=== PATIENT | male | born 1995 | race Caucasian/White ===

== ENCOUNTER 2016-06-27 16:48 | Inpatient (IN) | payer BC ==
[~2016-06-27] VITALS: Ht 162.6 cm; Wt 61.8 kg
[~2016-06-27 16:48] MED LIST: LORATAB PO
[2016-06-27] MEDS ORDERED: EFF75 PO (16:58)
[2016-06-27] MEDS ORDERED: LIDOCAINE/EPINEPHRINE 1% 20 ML VIAL INFIL ONE (17:15)
[2016-06-27 17:36] LABS: BASO % 0.3 %; BASO ABS # 0.02 K/uL (0-0.2); COMPLETE YES; EOS % 1.4 %; HEMATOCRIT 44.4 % (42-52); IG% 0.1 %; LYMPH % 24.4 %; LYMPH ABS # 1.95 K/uL (1.2-3.4); MEAN CELL VOLUME 91.5 fL (80-100); MEAN CORPUSCULAR HGB CONC 34.9 g/dl (32-36); MEAN PLATELET VOLUME 10.2 fL (7.4-10.4); MONO % 7.3 %; NEUT % 66.5 %; PLATELET COUNT 250 K/uL (130-400); RED BLOOD COUNT 4.85 M/uL (4.7-6.1); WHITE BLOOD COUNT 7.99 K/uL (4.8-10.8)
[2016-06-27 17:55] LABS: ALT/SGPT 28 U/L (12-78); BLOOD UREA NITROGEN 22 mg/dl (7-18); BUN/CREATININE RATIO 22.9 (10-20); CALCIUM 9.3 mg/dl (8.5-10.1); CARBON DIOXIDE 27 mmol/L (21-32); CHLORIDE 107 mmol/L (98-107); CREATININE 0.96 mg/dl (0.60-1.40); GLUCOSE 90 mg/dl (70-99); SODIUM 142 mmol/L (136-145)
--- NOTE | 2016-06-27 18:02 | DIAGNOSTIC IMAGING REPORT ---
CHEST ONE VIEW PORTABLE CLINICAL HISTORY: psych clearance COMPARISON STUDY: 06/20/2014 FINDINGS: The cardiac and mediastinal contours are normal. There is no evidence of focal pulmonary consolidation. There is no evidence of failure. No pleural effusions are visualized.[ A cardiac loop recorder projects over the left chest. IMPRESSION: No active disease in the chest. Electronically signed by: Austin Carlisle M.D. 06/27/2016 6:00 PM Dictated Date/Time: 06/27/2016 6:00 PM
[2016-06-27 18:05] LABS: ALKALINE PHOSPHATASE 55 U/L (45-117); AST/SGOT 21 U/L (15-37)
[2016-06-27 18:16] LABS: URINE APPEARANCE CLEAR (CLEAR); URINE BILIRUBIN NEG (NEG); URINE COLOR DK YELLOW; URINE NITRITE NEG (NEG); URINE SPECIFIC GRAVITY 1.031 (1.000-1.030); UROBILINOGEN NEG (NEG)
[2016-06-27 18:17] LABS: MANUAL MICROSCOPIC REQUIRED? NO; REVIEW REQ? NO
[2016-06-27 18:36] LABS: BENZODIAZEPINE, URINE NEG (NEG); COCAINE,URINE NEG (NEG); PHENCYCLIDINE, URINE NEG (NEG)
[2016-06-27 19:11] VITALS: O2SAT 97
[2016-06-27] MEDS ORDERED: MAGNESIUM HYDROXIDE SUSP 30 ML UDC PO PRN (20:15)
[2016-06-27] MEDS ORDERED: ALUMINUM/MAGNESIUM SUSP 30 ML UDC PO PRN (20:15)
[2016-06-27] MEDS ORDERED: SODIUM CHLORIDE 0.65% NA SOLN 45 ML (OCEAN) PRN (20:15)
[2016-06-27] MEDS ORDERED: ACETAMINOPHEN 325 MG TAB PO PRN (20:15)
[2016-06-27] MEDS ORDERED: BISMUTH SUBSALICYLATE PER ML OMNICELL CHARGE PO PRN (20:15)
[2016-06-27] MEDS ORDERED: hydrOXYzine HCL 25 MG TAB PO PRN ×2 (20:15)
--- NOTE | 2016-06-27 20:55 | EMERGENCY ROOM VISIT NOTE ---
History First contact with patient: 16:52 Chief Complaint: MENTAL HEALTH EVALUATION Stated Complaint: WRIST LAC History of Present Illness The patient is a 21 year old male who presents to the Emergency Room via BLS for evaluation of a self-inflicted left wrist laceration. The patient reports that he has a history of depression. He states that last semester, he went to [employer] for approximately 2 weeks when his parents determined that he would do better at home. The patient states that he took classes at [employer] for one semester. He states he was started on Effexor and was doing much better. He came back to [employer] and states that he was doing okay until last month. The patient states that his depression has been increasing and is now the worst it has ever been. He states that after class today, he went back to his room and had "one of his episodes." He states that he became angry and emotional for no reason and was throwing things around the room. He states that he cut his left wrist with scissors. He states this was not an attempt at suicide, but did help him feel a release of his anger. The patient does report occasional thoughts of suicide and occasional thoughts of hurting others as well. He denies any specific suicidal plan. The patient denies any other injuries. Review of Systems A complete 10-point Review of Systems was discussed with the patient, with pertinent positives and negatives listed in the History of Present Illness. All remaining Review of Systems questions can be considered negative unless otherwise specified. Social History Smoking Status: Never Smoker Alcohol Use: none Drug Use: none Marital Status: single Housing Status: lives with roommate Occupation Status: [employer] student Current/Historical Medications Scheduled Venlafaxine Hcl (Effexor), 75 MG PO DAILY Allergies Coded Allergies: No Known Allergies (Unverified , 06/27/16) Physical Exam Vital Signs Date Time Temp Pulse Resp B/P Pulse Ox O2 Delivery O2 Flow Rate FiO2 06/27/16 19:11 76 16 122/75 97 Room Air 06/27/16 16:50 36.8 72 20 138/89 97 Room Air Physical Exam VITALS: Vitals are noted on the nurse's note and reviewed by myself. Vital signs stable. GENERAL: This is a 21-year-old male, in no acute distress, nondiaphoretic, well- developed well-nourished. SKIN: There is a 4 cm laceration to the left wrist. There is minimal active bleeding. No tendons or significant blood vessels are identified in the base of the wound. HEENT: Normocephalic. PERRLA. EOMI. Nares patent. Mucous membranes moist. Neck is supple without nuchal rigidity. HEART: Regular rate and rhythm without murmurs gallops or rubs. LUNGS: Clear to auscultation bilaterally without wheezes, rales or rhonchi. No retractions or accessory muscle use. ABDOMEN: Positive bowel sounds x 4. Soft, nontender. MUSCULOSKELETAL: Full range of motion of the left wrist and all fingers. Family Day Care Provider strength 5/5. NEURO: Patient was alert and oriented to person place and time. Normal sensation to light and sharp touch. Medical Decision & Procedures Laboratory Results 06/27/16 17:26 Red Blood Count 4.85, Mean Corpuscular Volume 91.5, Mean Corpuscular Hemoglobin 32.0, Mean Corpuscular Hemoglobin Concent 34.9, Mean Platelet Volume 10.2, Neutrophils (%) (Auto) 66.5, Lymphocytes (%) (Auto) 24.4, Monocytes (%) (Auto) 7.3, Eosinophils (%) (Auto) 1.4, Basophils (%) (Auto) 0.3, Neutrophils # (Auto) 5.32, Lymphocytes # (Auto) 1.95, Monocytes # (Auto) 0.58, Eosinophils # (Auto) 0.11, Basophils # (Auto) 0.02 06/27/16 17:26 Test 06/27/16 17:26 06/27/16 18:05 06/27/16 18:29 White Blood Count 7.99 K/uL (4.8-10.8) Red Blood Count 4.85 M/uL (4.7-6.1) Hemoglobin 15.5 g/dL (14.0-18.0) Hematocrit 44.4 % (42-52) Mean Corpuscular Volume 91.5 fL (80-100) Mean Corpuscular Hemoglobin 32.0 pg (25-34) Mean Corpuscular Hemoglobin Concent 34.9 g/dl (32-36) Platelet Count 250 K/uL (130-400) Mean Platelet Volume 10.2 fL (7.4-10.4) Neutrophils (%) (Auto) 66.5 % Lymphocytes (%) (Auto) 24.4 % Monocytes (%) (Auto) 7.3 % Eosinophils (%) (Auto) 1.4 % Basophils (%) (Auto) 0.3 % Neutrophils # (Auto) 5.32 K/uL (1.4-6.5) Lymphocytes # (Auto) 1.95 K/uL (1.2-3.4) Monocytes # (Auto) 0.58 K/uL (0.11-0.59) Eosinophils # (Auto) 0.11 K/uL (0-0.5) Basophils # (Auto) 0.02 K/uL (0-0.2) RDW Standard Deviation 42.4 fL (36.4-46.3) RDW Coefficient of Variation 12.6 % (11.5-14.5) Immature Granulocyte % (Auto) 0.1 % Immature Granulocyte # (Auto) 0.01 K/uL (0.00-0.02) Anion Gap 8.0 mmol/L (3-11) Estimated GFR () 130.4 Estimated GFR (Non- 112.5 BUN/Creatinine Ratio 22.9 (10-20) Calcium Level 9.3 mg/dl (8.5-10.1) Total Bilirubin 0.9 mg/dl (0.2-1) Direct Bilirubin 0.2 mg/dl (0-0.2) Aspartate Amino Transf (AST/SGOT) 21 U/L (15-37) Alanine Aminotransferase (ALT/SGPT) 28 U/L (12-78) Alkaline Phosphatase 55 U/L (45-117) Total Protein 7.6 gm/dl (6.4-8.2) Albumin 4.2 gm/dl (3.4-5.0) Thyroid Stimulating Hormone (TSH) 1.110 uIu/ml (0.300-4.500) Urine Color DK YELLOW Urine Appearance CLEAR (CLEAR) Urine pH 6.0 (4.5-7.5) Urine Specific Edmond 1.031 (1.000-1.030) Urine Protein NEG (NEG) Urine Glucose (UA) NEG (NEG) Urine Ketones NEG (NEG) Urine Occult Blood NEG (NEG) Urine Nitrite NEG (NEG) Urine Bilirubin NEG (NEG) Urine Urobilinogen NEG (NEG) Urine Leukocyte Esterase NEG (NEG) Urine Opiates Screen NEG (NEG) Urine Methadone, Qualitative NEG (NEG) Urine Barbiturates NEG (NEG) Urine Phencyclidine (PCP) Level NEG (NEG) Ur Amphetamine/Methamphetamine NEG (NEG) MDMA (Ecstasy) Screen NEG (NEG) Urine Benzodiazepines Screen NEG (NEG) Urine Cocaine Metabolite NEG (NEG) Urine Marijuana (THC) NEG (NEG) Ethyl Alcohol mg/dL < 3.0 mg/dl (0-3) Procedure Verbal consent was obtained to perform the procedure. Using sterile technique the wound was cleaned with Betadine. The area was sterilely draped. 4 ml of 1 % buffered lidocaine with epinephrine was used to anesthetize the left wrist laceration. Once the patient was anesthetized, the wound was copiously irrigated under pressure with sterile saline. The wound was explored as described in the physical exam section. Deep structures were repaired using 3 simple interrupted 5-0 Vicryl sutures. The laceration was repaired using 7 simple interrupted 5-0 nylon sutures with the wound edges being well approximated. The patient tolerated the procedure well. Hemostasis was achieved. The area was cleaned with sterile saline and dressed with bacitracin ointment and bandage. Medical Decision Differential diagnosis includes depression, anxiety, suicidal ideations, among others. The patient was evaluated as above. Laceration repair was performed as noted in the procedure section. The patient presents with worsening of his depression and suicidal gesture. Although the patient does state that he was not attempting to kill himself today and initially denied suicidal ideations, he does admit to the mental health building repair maintenance supervisor that he has frequent suicidal thoughts. The patient was evaluated by the [address] [place] [id number] liaison, who recommended admission to the mental health unit for further treatment. Impression Primary Impression: Depression Departure Information Dispostion Mental Health Acute Care Condition GOOD Referrals [facility] (PCP) Forms HOME CARE DOCUMENTATION FORM, IMPORTANT VISIT INFORMATION Patient Instructions [facility] Problem Qualifiers Primary Impression: Depression Depression Type: major depressive disorder Major depression recurrence: recurrent Active/Remission status: remission status unspecified Qualified Codes: F33.9 - Major depressive disorder, recurrent, unspecified
[2016-06-27 21:24] VITALS: BP 119/77; PULSE 62; TEMP 36.5; Ht 162.6 cm; Wt 61.8 kg
[2016-06-28 06:46] VITALS: BP_SYST 102; BP_SYST 106; BP_DIAS 66; BP_DIAS 72; PULSE 53; PULSE 74; TEMP 36.7
[2016-06-28] MEDS ORDERED: VENLAFAXINE HCL 50 MG TAB PO SCH (09:00)
[2016-06-28] MEDS ORDERED: DIVALPROEX SODIUM 250 MG DELAY REL TAB PO ONE (10:00)
--- NOTE | 2016-06-28 10:28 | Psych Management Progress Note ---
Psychiatry Miscellaneous Date of Service: Jun 28, 2016. I personally participated in the case review and medical recommendations outlined in the psychiatric H&P documented by CHENTE Trejo. Patient seen, MS assessed. Rates mood as tired. Encouraged participation in therapeutic activities. He verbalized understanding of plans to start Depakote and states that all questions are answered to his satisfaction at this time.
[2016-06-28] MEDS ORDERED: LORAZEPAM 0.5 MG TAB PO PRN (11:30)
--- NOTE | 2016-06-28 11:53 | HISTORY & PHYSICAL EXAMINATION ---
DATE OF ADMISSION: 06/27/2016 IDENTIFYING DATA: Alvaro Watson is a 21-year-old [employer] student from the [facility], who was admitted to our unit voluntarily with severe depression, anger outbursts, and suicidal ideation. Information is gathered from the patient and considered to be reliable. CHIEF COMPLAINT: "I have been battling depression for a very long time. HISTORY OF PRESENT ILLNESS: Alvaro Watson is a 21-year-old gentleman from the [facility] who is currently a [employer] student. He is in psychiatric treatment with a Saundra Sanchez nurse practitioner in [place] and a therapist in [place] as well, whose first name is Olivia. He reports being treated for depression with anxiety. He describes that he has had "intense mood swings for a long time and these have been increasingly violent over the last year. He describes that yesterday he his "most intense one ever" after he had been at class and returned to his apartment. He said he got to his apartment and felt "really angry" and started throwing things, screaming and hitting the wall. He ended up picking up a pair of scissors and cutting his left wrist, but denies that this was with suicidal intention. He feels like he was not in control of himself and really did not understand what he was doing. After he cut himself however, he realized that it helped to calm him down but then looked at the wound and became concerned and summoned 911 to bring him to the hospital. He says he was thinking about what he was doing. He reports that he has been experiencing depression since he was in middle school and high school. He did have anger outbursts then but they were not as violent as these. He admits to having suicidal thinking when he was in middle school and high school, but did not tell anyone. 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 He did well his first semester but the latter part of the second semester he started going downhill and this is when he told his parents that he was experiencing depression and having suicidal thoughts. He did not, however enter into treatment until he was 19. He began seeing a psychiatrist and a therapist who diagnosed him with depression. He was on Lexapro for about a year and felt that it was not effective, although admits that he was not always consistent in taking it. He was started on Effexor 37.5 mg in January and initially felt that it was helping him to feel better. Last semester, he withdrew from school after 2 weeks due to his depression and suicidal thinking. He returned for this springester and felt that he did well in March and even in April felt that he was getting back to his old self, but since then mood has been in deterioration and anger outbursts more frequent. He cites several stressors in his life including the fact that he feels lonely, not accepted, not having a girlfriend or close friends. He wonders if he is not attractive enough, is socially awkward or there are other reasons people do not want to socialize with him. He says that he has felt this way since he was in middle school. He talks with some anger and distain about people who see him in social situations and choose not to socialize with him feeling that they are intentionally hurting him by avoiding him. Today, he says that he remains depressed. He reports sleep that is "really bad", only getting 1-4 hours of sleep per night in large part based on the fact that he is very busy with his classes and has little time to sleep. When he has the opportunity he will sleep for extended periods. He feels very tired in the day, will occasionally nap "way too long." He is currently taking 16.5 credits and has many early a.m. classes which are a struggle for him, but he is doing well academically. His appetite has been okay in general, although less in the last week. He reports anxiety socially, feeling awkward at socials and worried that he is not accepted. He also experiences anxiety prior to exams. He denies that he has ever had panic attacks. He denies auditory or visual hallucinations or paranoia, but feels as if his anger outbursts at times are unreal. The self-injurious act yesterday was the first time that he has ever done that. He also endorses at least 1 episode in which he felt "on top of the world", "the happiest ever" and felt that things were going his way. He cannot remember the timing of this. He continues to report suicidal ideation but no active plan or intent today. CURRENT MEDICATIONS: Effexor XR 75 mg daily. PAST PSYCH HISTORY: He sees as a nurse practitioner, whose name is Saundra Nelson nurse practitioner in the [place] area. His therapist's name is Olivia. He has never been hospitalized for mental health reasons. He has never made a suicide attempt. He denies violence toward other people. PRIOR MEDICATION TRIALS: 1. Lexapro - on for more than a year, did not take consistently, felt it did not work. 2. Ativan -- used with Lexapro and so felt it did not work. ACCESS TO GUNS: Denies. ALLERGIES: NKDA. PAST MEDICAL HISTORY: 1. History of a syncopal episode while on allergy medicines and had a loop monitor implanted. 2. Denies for personal history of obesity, diabetes, dyslipidemia, hypertension, or cardiovascular disease. 3. Denies history for head injury or seizure. 4. Tobacco use -- nonsmoker. 5. Caffeine use -- drinks a lot of coffee during the day in order to maintain wakefulness. FAMILY HISTORY: Denies for psychiatric issues, substance use or suicide. He denies any major medical concerns in his family including obesity, diabetes, dyslipidemia, hypertension, or cardiovascular disease. SUBSTANCE ABUSE HISTORY: The patient describes that he drinks alcohol only "very infrequently". His last drink was consumed the first week of this semester back in March. He denies ever having had any consequences as a result of alcohol. He denies the use of street drugs of any kind ever. PERSONAL HISTORY: The patient grew up in [place]. He was raised by his mother and father. His mother is a systems software manager and his father is a historiography professor. 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 He does not work outside of school. He is not currently in a relationship. He has never been and has no children. He does not consider himself to be spiritual. There are no legal concerns. Psychological trauma history is denied. MENTAL STATUS EXAMINATION: A 21-year-old gentleman of descent, who is awakened from sleep for the interview. He is casually dressed and mildly disheveled. He is cooperative with the interview. Gait and station are within normal limits. Eye contact is good. Motor behavior is unremarkable. Speech is of normal rate, volume, and tone. Affect is flat. Mood is depressed. Thought process is organized and goal directed. He denies thought disorder in the form of hallucinations or delusions. He endorses suicidal thinking but denies active plan or intent. He denies homicidal ideation. Today, he is fully oriented. Memory functions are intact. Fund of knowledge is intact. Intelligence is estimated to be average. Insight and judgment are impaired. VITAL SIGNS: Temp 36.7, pulse 53 supine, 74 sitting, respirations 16, blood pressure 102/66 supine, 106/72 sitting. LABORATORIES: 1. CBC with diff -- within normal limits. 2. Chem profile -- within normal limits. 3. TSH -- within normal limits at 1.110. 4. Toxicology -- negative. 5. Urinalysis -- within normal limits. IMAGING: Chest x-ray -- negative. REVIEW OF SYSTEMS: Positive for left wrist laceration having received 7 sutures, and reporting pain 4/10 this morning. A minimum of 10 systems has been reviewed and otherwise found to be negative. PHYSICAL EXAMINATION: Exam performed by Katrin Hernandez in the Emergency Room last night has been reviewed and accepted as medical clearance. PATIENT'S STRENGTHS AND NEEDS: 1. Strengths -- intelligence, willingness to engage in treatment. 2. Needs -- to be in local outpatient treatment. RISK ASSESSMENT: 1. Risk factors -- male, single, chronic mental illness, anxiety. 2. Protective factors -- no access to guns, no comorbid medical conditions impairing recovery, good support from parents, willingness to engage in local treatment. IMPRESSION: A 21-year-old [employer] student admitted after an anger outburst in which he cut his wrist in a self-injurious event. He gives a lot of evidence to support a bipolar diagnosis including at least 1 episode in which she felt "on top of the world", with elevated mood and multiple episodes of irritability, worsening on Effexor. At this point, we will treat this as if it is a bipolar disorder, discontinue Effexor and start Depakote 250 mg b.i.d. titrating as tolerated. I have reviewed risks, benefits, and alternatives including the need for ongoing lab monitoring and the patient wishes to proceed. Will start with [address] b[address] His parents are aware that he is here and he will want them to be involved in his treatment. He is not sure how he wants to proceed with school, although he is doing well academically. If he remains locally he will need local providers. There is no substance abuse component to his picture and so I will order Ativan 0.5 mg q. 4 hours p.r.n. in the event he feels his anger rising. The patient's left wrist laceration is currently covered after having received 7 sutures. He will need to have sutures evaluated/removed in 7-10 days. I am also recommending he cut back on caffeine due to the agitation and anxiety. At this time, the patient requires inpatient mental health treatment due to the severity of his condition and the risk for self-harm if discharged. DIAGNOSES: 1. Bipolar disorder, not otherwise specified, depressed, severe, without psychotic features. Differential includes major depressive disorder, depressed, severe, intermittent explosive disorder. 2. Caffeine abuse. PLAN: Has been reviewed with Dr. Sri Millan. 1. Bipolar disorder. -- Start Depakote DR 250 mg b.i.d. titrating as tolerated. -- Q. 15 minute checks for safety. -- Encourage patient to participate in group and individual counseling. -- Assist the patient to explore new coping strategies for times of anger and depression. -- Family meeting with parents. -- Coordinate with the Office of Student Affairs as needed. -- The patient will need local providers. 2. Caffeine abuse. -- Recommend patient drastically cut down on his caffeine use in view of anger and anxiety. INITIAL HOSPITAL CARE: [id number]. MTDD
[2016-06-28] MEDS: DIVALPROEX SODIUM 250 MG DELAY REL TAB PO SCH (21:21)
[2016-06-29 06:45] VITALS: BP_SYST 125; BP_SYST 126; BP_DIAS 75; BP_DIAS 79; PULSE 54; PULSE 64; TEMP 36.6
[2016-06-29] MEDS: DIVALPROEX SODIUM 250 MG DELAY REL TAB PO SCH ×2 (08:37→21:25)
--- NOTE | 2016-06-29 09:21 | Psychiatric Progress Notes ---
Progress Note Date of Service Jun 29, 2016. Interval History 21 yo [employer] student admitted voluntarily on 06/28/16 with mood swings, anger, and self inflicted laceration to wrist. Chief Complaint "I had another emotional breakdown.". Subjective Patient was seen & assessed interval progress reviewed with Treatment Team. The patient says that he continues to struggle with his mood and not wanting to be here. At bedtime last night, he had trouble falling asleep and began to think about all of the things that brought him to this point and then "had another emotional breakdown". He woke his roommate to talk about it and it eventually passed. He can't believe that he was feeling relatively normal on Thursday and by Thursday, was here. He is not sure how he wants to proceed with school, feeling that he should complete the semester, but at the same time does not feel he could resume classes with the way he is feeling. He denies acute SI but says that that he has thoughts that he doesn't want to live. He notes that he felt better when his parents were visiting last night, and worse when they left. "I have no peace of mind", "Why can't I be a normal 21 year old?". He admits that he has been somewhat isolative, not interacting with peers, but when he has, he says that he feels better talking. He admits to being hard on himself, and admits that he did not work as hard as he could on his problems last semester when he took off from school. Review of Systems Constitutional: + problem reported (Difficulty falling asleep) ENT: No dental problems, No hearing loss, No nasal symptoms, No problem reported, No sore throat, No tinnitus, No trouble swallowing, No unusual epistaxis Respiratory: No cough, No dyspnea at rest, No dyspnea on exertion, No hemoptysis, No problem reported, No shortness of breath, No sputum, No wheezing Cardiovascular: No PND, No chest pain, No claudication, No edema, No orthopnea , No palpitations, No problem reported Abdomen: No GI bleeding, No constipation, No diarrhea, No nausea, No pain, No problem reported, No vomiting Musculoskeletal: No calf pain, No joint pain, No muscle pain, No problem reported, No swelling Neurologic: No balance problems, No memory loss, No numbness/tingling, No paralysis, No problem reported, No vertigo, No weakness Psychiatric: + anxiety, + depression symptoms, + insomnia Integumentary: No bleeding, No color change, No itch, No new/changing skin lesions, No problem reported, No rash Sleep Information Total Hours of Sleep: 7.25 Meal Information Percent of Breakfast Consumed: 0 Percent of Lunch Consumed: 100 Percent of Dinner Consumed: 100 Mental Status Exam During interview pt is: alert and oriented, cooperative Appearance: appropriately dressed, appropriately groomed Eye contact is: good Motor behavior is: steady gait & station, no abnormal motor movements Speech: normal in rate, rhythm & volume Affect: depressed, flat Mood is: depressed Thought process: goal directed Thought content: reality based without delusions Suicidal thought are: present (passive), Plan: denied Homicidal thoughts are: denied Hallucinations: denies auditory, denies visual Cognition: memory grossly intact, attention grossly intact Intelligence estimated to be: average Insight: poor Judgement: poor Impression Trying to adjust to the unit, but resists, wanting to go home. He is a very intelligent man and is working to understand his problems but will need encouragement to try to make some changes. Long discussion about using the milieu to practice different social strategies to interact with peers, and to put his insight to use by talking with people so that he feels better. Depakote goes to 500 mg. BID today, family meeting scheduled for tomorrow. Continued Inpatient Care Requires inpatient care due to the severity of his condition and the risk for self harm if discharged. Plan (1) Bipolar affective, depress, unspec 4/2 - Increase Depakote to 500 mg. BID - Family meeting with parents tomorrow. I spoke with both parents by phone yesterday to update. - Q 15 min checks for safety - Encourage participation in group and individual counseling - Encourage patient not to isolate and to initiate interaction with peers - Has not decided how to proceed with school. Contact Office of Student Affairs as needed - If staying locally will need providers - Continue ativan prn for anxiety/anger. 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 Discharge / Aftercare Planning Primary Care Physician: Name: Dr. Nagel Therapist: Name: Afua Sanchez Date of Appointment: Jul 12, 2016 Dietary Assistant: Name: Olivia Green Visit Code E&M Code: 77249 Therapy Code: 57512 Inventory Assets Strengths: Intelligence, support from family Risk Factors Assessment Male: Yes : No /single/: Yes Higher / Fall in social status: No Access to guns: No Health problems: No Mental Health Diagnoses: Yes Substance use disorders: No Previous attempt: No Previous psychiatric stay: No Hopelessness: Yes Smoker: No Protective Factors Assessment Scientology beliefs: No : No Responsible for young children: No Employed: No Stable relationships: Yes Supportive family: Yes Data Vital Signs Last 24 Hrs: Date Time Temp Pulse Resp B/P Pulse Ox O2 Delivery O2 Flow Rate FiO2 06/29/16 06:45 36.6 54 18 126/79 64 125/75 Meds Administered Last 24 Hrs: Meds Administered (Past 24Hrs) Medications (Trade) Dose Ordered Sig/Alba Route Start Time Stop Time Status Last Admin Dose Admin Divalproex Sodium (Depakote Delay Rel Tab) 250 mg Taper BID PO 06/28/16 22:00 07/29/16 21:59 06/29/16 08:37 250 MG Divalproex Sodium (Depakote Delay Rel Tab) 250 mg NOW ONCE PO 06/28/16 10:00 06/28/16 10:01 DC 06/28/16 10:33 250 MG Lab Results Last 24 Hrs: 06/27/16 17:26 Red Blood Count 4.85, Mean Corpuscular Volume 91.5, Mean Corpuscular Hemoglobin 32.0, Mean Corpuscular Hemoglobin Concent 34.9, Mean Platelet Volume 10.2, Neutrophils (%) (Auto) 66.5, Lymphocytes (%) (Auto) 24.4, Monocytes (%) (Auto) 7.3, Eosinophils (%) (Auto) 1.4, Basophils (%) (Auto) 0.3, Neutrophils # (Auto) 5.32, Lymphocytes # (Auto) 1.95, Monocytes # (Auto) 0.58, Eosinophils # (Auto) 0.11, Basophils # (Auto) 0.02 06/27/16 17:26 Test 06/27/16 17:26 06/27/16 18:05 06/27/16 18:29 White Blood Count 7.99 K/uL (4.8-10.8) Red Blood Count 4.85 M/uL (4.7-6.1) Hemoglobin 15.5 g/dL (14.0-18.0) Hematocrit 44.4 % (42-52) Mean Corpuscular Volume 91.5 fL (80-100) Mean Corpuscular Hemoglobin 32.0 pg (25-34) Mean Corpuscular Hemoglobin Concent 34.9 g/dl (32-36) Platelet Count 250 K/uL (130-400) Mean Platelet Volume 10.2 fL (7.4-10.4) Neutrophils (%) (Auto) 66.5 % Lymphocytes (%) (Auto) 24.4 % Monocytes (%) (Auto) 7.3 % Eosinophils (%) (Auto) 1.4 % Basophils (%) (Auto) 0.3 % Neutrophils # (Auto) 5.32 K/uL (1.4-6.5) Lymphocytes # (Auto) 1.95 K/uL (1.2-3.4) Monocytes # (Auto) 0.58 K/uL (0.11-0.59) Eosinophils # (Auto) 0.11 K/uL (0-0.5) Basophils # (Auto) 0.02 K/uL (0-0.2) RDW Standard Deviation 42.4 fL (36.4-46.3) RDW Coefficient of Variation 12.6 % (11.5-14.5) Immature Granulocyte % (Auto) 0.1 % Immature Granulocyte # (Auto) 0.01 K/uL (0.00-0.02) Anion Gap 8.0 mmol/L (3-11) Estimated GFR () 130.4 Estimated GFR (Non- 112.5 BUN/Creatinine Ratio 22.9 (10-20) Calcium Level 9.3 mg/dl (8.5-10.1) Total Bilirubin 0.9 mg/dl (0.2-1) Direct Bilirubin 0.2 mg/dl (0-0.2) Aspartate Amino Transf (AST/SGOT) 21 U/L (15-37) Alanine Aminotransferase (ALT/SGPT) 28 U/L (12-78) Alkaline Phosphatase 55 U/L (45-117) Total Protein 7.6 gm/dl (6.4-8.2) Albumin 4.2 gm/dl (3.4-5.0) Thyroid Stimulating Hormone (TSH) 1.110 uIu/ml (0.300-4.500) Urine Color DK YELLOW Urine Appearance CLEAR (CLEAR) Urine pH 6.0 (4.5-7.5) Urine Specific [place] 1.031 (1.000-1.030) Urine Protein NEG (NEG) Urine Glucose (UA) NEG (NEG) Urine Ketones NEG (NEG) Urine Occult Blood NEG (NEG) Urine Nitrite NEG (NEG) Urine Bilirubin NEG (NEG) Urine Urobilinogen NEG (NEG) Urine Leukocyte Esterase NEG (NEG) Urine Opiates Screen NEG (NEG) Urine Methadone, Qualitative NEG (NEG) Urine Barbiturates NEG (NEG) Urine Phencyclidine (PCP) Level NEG (NEG) Ur Amphetamine/Methamphetamine NEG (NEG) MDMA (Ecstasy) Screen NEG (NEG) Urine Benzodiazepines Screen NEG (NEG) Urine Cocaine Metabolite NEG (NEG) Urine Marijuana (THC) NEG (NEG) Ethyl Alcohol mg/dL < 3.0 mg/dl (0-3)
[2016-06-30 06:56] VITALS: BP_SYST 102; BP_SYST 103; BP_DIAS 63; BP_DIAS 64; PULSE 55; PULSE 92; TEMP 36.5
[2016-06-30] MEDS: DIVALPROEX SODIUM 250 MG DELAY REL TAB PO SCH (08:47)
--- NOTE | 2016-06-30 10:58 | Psychiatric Progress Notes ---
Progress Note Date of Service Jun 30, 2016. Interval History 21 yo [employer] student admitted voluntarily on 06/28/16 with mood swings, anger, and self inflicted laceration to wrist. Chief Complaint "I'm not having as many emotional breakdowns". Subjective Patient was seen & assessed interval progress reviewed with Treatment Team. Staff report he is going to groups and participating, is engaging with peers, and had a good visit with his parents. He says his mood is stabilizing, as he has had "less emotional breakdowns, less anger, intense emotions" since admission. He did have "an emotional breakdown" yesterday morning, where he was angry, tearful, and "just wanted to get out of here." He complains that he is bored here and hopes to not stay long. He wants to work on better ways to cope, feeling he cannot handle "when things go wrong in my life, get super angry, need to better control my mood swings." He does think medication is helping, as mood swings have been less here. He maintains that his self inflicted wrist laceration was "out of intense anger, didn't even know what I was doing, and next thing I know my wrist was bleeding." He has noticed that just talking about his thoughts and emotions allows him to calm down and feel more in control. He also talks about being honest about how he's feeling and getting "a different perspective on myself," wanting to work on his self confidence. He denies side effects to the Depakote and is willing to increase the dose. Says he has decided to stay in school and complete the semester. Got hydroxyzine for sleep last night and felt a little groggy this am. He is very anxious for discharge, saying his treatment goal is to "get out of here as soon as possible. " Sleep Information Total Hours of Sleep: 8.00 Meal Information Percent of Breakfast Consumed: 100 Percent of Lunch Consumed: 100 Percent of Dinner Consumed: 100 Mental Status Exam During interview pt is: alert and oriented, cooperative Appearance: appropriately dressed, appropriately groomed Eye contact is: good Motor behavior is: steady gait & station, no abnormal motor movements Speech: normal in rate, rhythm & volume Affect: depressed, blunted Mood is: other ("getting better") Thought process: goal directed Thought content: reality based without delusions Suicidal thought are: denied Homicidal thoughts are: denied Hallucinations: denies auditory, denies visual Cognition: memory grossly intact, attention grossly intact Intelligence estimated to be: average Insight: impaired Judgement: impaired Impression Trying to adjust to the unit, but resists and complains of boredom, wanting to go home. Continued encouragement to engage fully in treatment and use the milieu to practice different social strategies to interact with peers, and to put his insight to use by talking with people so that he feels better. Will continue to titrate Depakote, and family meeting is scheduled for today. Continued Inpatient Care Requires inpatient care due to the severity of his condition and the risk for self harm if discharged. Plan (1) Bipolar affective, depress, unspec 4/2 - Increase Depakote to 500 mg. BID - Family meeting with parents tomorrow. I spoke with both parents by phone yesterday to update. - Q 15 min checks for safety - Encourage participation in group and individual counseling - Encourage patient not to isolate and to initiate interaction with peers - Has not decided how to proceed with school. Contact Office of Student Affairs as needed - If staying locally will need providers - Continue ativan prn for anxiety/anger. 4/3 - Increase Depakote to 500mg qam and 1000mg qhs. Trough level due on 07/05. - Family meeting with parents today. 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 (2) Caffeine abuse /2 - Recommend he reduce as he was drinking large quantities of coffee. (3) Self-inflicted laceration of wrist 4/3 - laceration clean, dry and intact, no signs infection. Does not want antibiotic ointment. Will need to f/u after discharge for suture removal. Discharge / Aftercare Planning Primary Care Physician: Name: Dr. Nagel Therapist: Name: Afua Sanchez Date of Appointment: Jul 12, 2016 Dispatcher Radio: Name: Olivia Green Visit Code E&M Code: 86426 Inventory Assets Strengths: Intelligence, support from family Risk Factors Assessment Male: Yes : No /single/: Yes Higher / Fall in social status: No Access to guns: No Health problems: No Mental Health Diagnoses: Yes Substance use disorders: No Previous attempt: No Previous psychiatric stay: No Hopelessness: Yes Smoker: No Protective Factors Assessment Scientologist beliefs: No : No Responsible for young children: No Employed: No Stable relationships: Yes Supportive family: Yes Data Vital Signs Last 24 Hrs: Date Time Temp Pulse Resp B/P Pulse Ox O2 Delivery O2 Flow Rate FiO2 06/30/16 06:56 36.5 55 16 103/63 92 102/64 Meds Administered Last 24 Hrs: Meds Administered (Past 24Hrs) Medications (Trade) Dose Ordered Sig/Alba Route Start Time Stop Time Status Last Admin Dose Admin Divalproex Sodium (Depakote Delay Rel Tab) 500 mg Taper BID PO 06/28/16 22:00 07/29/16 21:59 06/30/16 08:47 500 MG
[2016-06-30] MEDS ORDERED: DIVALPROEX SODIUM 500 MG DELAY RELEASE TAB PO SCH (22:00)
[2016-07-01 06:38] VITALS: BP_SYST 113; BP_SYST 126; BP_DIAS 73; BP_DIAS 85; PULSE 56; PULSE 71; TEMP 36.4
[2016-07-01] MEDS ORDERED: DIVALPROEX SODIUM 500 MG DELAY RELEASE TAB PO SCH (09:00)
[2016-07-01] MEDS ORDERED: DPKEC500 PO (09:14)
--- NOTE | 2016-07-01 09:23 | Discharge Instructions ---
Discharge Information Report Includes Report will include the: Discharge Instructions & Summary Admission Admission Date / Time: Jun 27, 2016 at 20:19 Reason for Admission: Major Depression Recurrent Discharge Discharge Diagnosis / Problem: Bipolar disorder, depressed Condition at Discharge: Fair Discharge Goals Goal(s): Decrease discomfort, Improve disease control, Prevent Disease Progression Activity Recommendations Activity Limitations: resume your previous activity . Instructions / Follow-Up Instructions / Follow-Up . SPECIAL CARE INSTRUCTIONS: 1. Follow through with your scheduled aftercare appointments. If unable to keep an appointment, please call to reschedule. 2. Take your medication only as prescribed. Medication should not be changed or stopped without the approval of your doctor. In the event of worsening symptoms or concerns about side effects, contact your doctor immediately. 3. Utilize new healthy coping skills, anger management skills, and stress management skills learned during your hospitalization. Journal feelings and process them with a support person. Identify stressors or situations that may result in relapse, deterioration or inappropriate behaviors and develop a plan to deal with those issues. 4. If your coping skills are ineffective and you are in crisis, contact your outpatient providers for direction. If unable to reach your providers, please call the CAN HELP LINE AT or go to the closest Emergency Room. 5. Avoid alcohol and un-prescribed drugs. 6. You have been provided with the Mental Health Advance Directives Pamphlet for your review. AFTERCARE APPOINTMENTS: * Please call your insurance company prior to your scheduled appointment to confirm your aftercare providers are covered. Take your insurance information to your appointments. . Discharge / Aftercare Planning Primary Care Physician: Name: Dr. Nagel Psychiatrist: Name: Dr Xavier Date of Appointment: Jul 18, 2016 Time of Appointment: 8:00 Appointment Notes: this is an hour apt since it's an intake Therapist: Name Of Therapist: Afua Sanchez Date of Appointment: Jul 12, 2016 Bending Roll Operator: Name: Olivia Green . Follow-Up Care Plan for Follow-Up Care: The patient will have prompt psychiatric follow up Current Hospital Diet Patient's current hospital diet: Regular Diet Discharge Diet Recommended Diet: Regular Diet Procedures Procedures Performed: No Pending Studies Pending Studies at Discharge: No Medical Emergencies . Who to Call and When: Medical Emergencies: For questions or emergencies related to your hospital stay, please contact the Inpatient Behavioral Health Unit at [phone]. A fur mixer operator is on-call 20/10 for the Behavioral Health Unit for emergencies At any time you feel your situation is an emergency, you may also call 911 immediately. . Non-Emergent Contact Non-Emergency issues call your: Psychiatrist, Therapist Advance Directives Do You Have an Existing Mental: No Existing Living Will: No Existing Power of Circular Gang Saw Operator: No Advance Directives Info Given: To Pt/S.O. Advance Directives Reason: Declines as Mental Health Visit. Discharge Summary Admission HPI Per the Admitting provider: Please see admission H&P Hospital Course (1) Bipolar affective, depress, unspec 06/29 - Increase Depakote to 500 mg. BID - Family meeting with parents tomorrow. I spoke with both parents by phone yesterday to update. - Q 15 min checks for safety - Encourage participation in group and individual counseling - Encourage patient not to isolate and to initiate interaction with peers - Has not decided how to proceed with school. Contact Office of Student Affairs as needed - If staying locally will need providers - Continue ativan prn for anxiety/anger. 06/30 - Increase Depakote to 500mg qam and 1000mg qhs. Trough level due on 07/05. - Family meeting with parents today. 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 (2) Caffeine abuse 06/29 - Recommend he reduce as he was drinking large quantities of coffee. (3) Self-inflicted laceration of wrist 06/30 - laceration clean, dry and intact, no signs infection. Does not want antibiotic ointment. Will need to f/u after discharge for suture removal. Risk Factors Assessment Male: Yes : No /single/: Yes Higher / Fall in social status: No Access to guns: No Health problems: No Mental Health Diagnoses: Yes Substance use disorders: No Previous attempt: No Previous psychiatric stay: No Hopelessness: Yes Smoker: No Protective Factors Assessment Alevism beliefs: No : No Responsible for young children: No Employed: No Stable relationships: Yes Supportive family: Yes Day of Discharge Assessment COURSE OF HOSPITALIZATION: The patient was admitted to our unit after having had an angry outbursts in the context of stress at school. He's been having increasing angry outbursts despite having been on venlafaxine. He gave a good history to support a possible underlying bipolar disorder, and therefore venlafaxine was discontinued in favor of a mood stabilizer, Depakote getting to 500 mg a.m. and 1000 mg at bedtime. He worked hard in groups and individual therapy to understand his sense of loneliness and betrayal with his friends [place], who he perceived not to be caring whether or not he was included. He worked hard to increase his socialization and to try new strategies and learn coping strategies for when he felt anger coming on. His parents were actively involved in his treatment, came for a family meeting. He decided to remain in school, complete this semester at [employer]. We have recommended local follow- up and those referrals are pending. He has providers at home in [place] as well. He did experience a self-inflicted laceration to his left wrist, using scissors, during the episode of anger, however he denied that this was a suicidal act on that it was more self-injurious, producing relief of his emotional distress. DAY OF DISCHARGE ASSESSMENT: Today the patient says he is feeling better. He feels in more control. He gives an example of last evening he felt a "breakdown " coming on and he was able to employ deep breathing exercises to remain focused. He denies any suicidal thinking. He feels ready to be discharged, and is optimistic about his life. He will be returning to school tomorrow, Thursday. Today he is casually and appropriately dressed and groomed. Eye contact is good. Gait and station are within normal limits. Affect remains blunted. Speech is of normal rate volume and tone. Thoughts are organized and goal directed. There is no evidence of thought disorder. Recent and remote memory is intact per conversation. Intelligence is estimated to be average. Insight and judgment are improved over admission. Laboratory Test 06/27/16 17:26 06/27/16 18:05 06/27/16 18:29 White Blood Count 7.99 Red Blood Count 4.85 Hemoglobin 15.5 Hematocrit 44.4 Mean Corpuscular Volume 91.5 Mean Corpuscular Hemoglobin 32.0 Mean Corpuscular Hemoglobin Concent 34.9 Platelet Count 250 Mean Platelet Volume 10.2 Neutrophils (%) (Auto) 66.5 Lymphocytes (%) (Auto) 24.4 Monocytes (%) (Auto) 7.3 Eosinophils (%) (Auto) 1.4 Basophils (%) (Auto) 0.3 Neutrophils # (Auto) 5.32 Lymphocytes # (Auto) 1.95 Monocytes # (Auto) 0.58 Eosinophils # (Auto) 0.11 Basophils # (Auto) 0.02 RDW Standard Deviation 42.4 RDW Coefficient of Variation 12.6 Immature Granulocyte % (Auto) 0.1 Immature Granulocyte # (Auto) 0.01 Sodium Level 142 Potassium Level 4.0 Chloride Level 107 Carbon Dioxide Level 27 Anion Gap 8.0 Blood Urea Nitrogen 22 Creatinine 0.96 Estimated GFR () 130.4 Estimated GFR (Non- 112.5 BUN/Creatinine Ratio 22.9 Random Glucose 90 Calcium Level 9.3 Total Bilirubin 0.9 Direct Bilirubin 0.2 Aspartate Amino Transferase (AST) 21 Alanine Aminotransferase (ALT) 28 Alkaline Phosphatase 55 Total Protein 7.6 Albumin 4.2 Thyroid Stimulating Hormone (TSH) 1.110 Urine Color DK YELLOW Urine Appearance CLEAR Urine pH 6.0 Urine Specific [place] 1.031 Urine Protein NEG Urine Glucose (UA) NEG Urine Ketones NEG Urine Occult Blood NEG Urine Nitrite NEG Urine Bilirubin NEG Urine Urobilinogen NEG Urine Leukocyte Esterase NEG Urine Opiates Screen NEG Urine Methadone, Qualitative NEG Urine Barbiturates NEG Urine Phencyclidine (PCP) Level NEG Ur Amphetamine/Methamphetamine NEG MDMA (Ecstasy) Screen NEG Urine Benzodiazepines Screen NEG Urine Cocaine Metabolite NEG Urine Marijuana (THC) NEG Ethyl Alcohol mg/dL < 3.0 Total Time Total Time Spent (min): Greater than 30 minutes Total Time Included: examination of the patient, discharge planning, medication reconciliation, communication with other providers Tobacco Cessation at Discharge Smoking Status: Never Smoker FDA approved Prescription: non-smoker
== END 2016-07-01 13:18 | disposition home or self-care (01) | DRG 885 ==
LOC: ENRESERVTM → ENRESERVDT → EDBD 16:48 → C.EDD 16:50 → C.MHU 20:19
PROVIDERS: ADMIT Psychiatry & Neurology Child & Adolescent Psychiatry; ATTEND Psychiatry & Neurology Psychiatry
PROC: 0HQEXZZ Repair Left Lower Arm Skin, External Approach (ICD-10-PCS; principal; 2016-06-27)
DX: F31.9 Bipolar disorder, unspecified (principal); F41.9 Anxiety disorder, unspecified; F15.10 Other stimulant abuse, uncomplicated; X78.8XXA Intentional self-harm by other sharp object, initial encounter; S61.512A Laceration without foreign body of left wrist, initial encounter; Y92.039 Unspecified place in apartment as the place of occurrence of the external cause; Z79.899 Other long term (current) drug therapy

== ENCOUNTER → 2016-07-06 | Outpatient (CLI) | payer BC ==
[~2016-07-06] MED LIST changes: +DPKEC500 PO; -LORATAB PO
== END | disposition home or self-care (01) ==
LOC: C.LAB 13:24
PROVIDERS: ATTEND Registered Nurse Psychiatric/Mental Health
DX: F31.81 Bipolar II disorder (principal)

== ENCOUNTER → 2016-12-23 | Outpatient (CLI) | payer OTHER ==
[2016-12-23 12:20] LABS: HEMATOCRIT 43.7 % (42-52); MEAN CELL VOLUME 95.8 fL (80-100); MEAN CORPUSCULAR HEMOGLOBIN 31.8 pg (25-34); MEAN CORPUSCULAR HGB CONC 33.2 g/dl (32-36); MEAN PLATELET VOLUME 11.6 fL (7.4-10.4); PLATELET COUNT 187 K/uL (130-400); RED BLOOD COUNT 4.56 M/uL (4.7-6.1); WHITE BLOOD COUNT 4.43 K/uL (4.8-10.8)
== END | disposition home or self-care (01) ==
LOC: C.LAB 11:09
PROVIDERS: ATTEND Psychiatry & Neurology Geriatric Psychiatry
DX: F31.81 Bipolar II disorder (principal); R53.83 Other fatigue; E55.9 Vitamin D deficiency, unspecified

== ENCOUNTER 2017-05-24 03:24 | Emergency (ER) | payer OTHER ==
[~2017-05-24] VITALS: Ht 172.7 cm; Wt 52.4 kg
[2017-05-24 03:45] VITALS: TEMP 36.8; Ht 172.7 cm; Wt 52.4 kg
--- NOTE | 2017-05-24 03:59 | EMERGENCY ROOM VISIT NOTE ---
History Report prepared by Carol: Miryam Eaton Under the Supervision of: Dr. Adelaida Kruse D.O. First contact with patient: 03:28 Chief Complaint: MENTAL HEALTH EVALUATION Stated Complaint: MENTAL HEALTH History of Present Illness The patient is a 22 year old male who presents to the Emergency Room with complaints of mental health. 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 He notes he had been drinking a lot tonight. He also state that a few weeks after he got out of [facility] the first time, he thought he would never hurt himself again. The patient states he knows his limits, but he keeps going over them. He notes he has a low alcohol tolerance and tonight was his friend's 21st birthday. The patient also states reports he has been surrounding himself with the wrong group of people. HPI limited due to the patient's condition. 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 A total of 10 systems reviewed and were otherwise negative. Past Medical & Surgical Medical Problems: (1) Bipolar affective, depress, unspec (2) Caffeine abuse (3) Self-inflicted laceration of wrist Family History Patient reports no known family medical history. Social History Smoking Status: Never Smoker Alcohol Use: none Drug Use: none Marital Status: single Housing Status: lives with roommate Occupation Status: [employer] student Current/Historical Medications No Active Prescriptions or Reported Meds Allergies Coded Allergies: No Known Allergies (Unverified , 05/24/17) Physical Exam Vital Signs Date Time Temp Pulse Resp B/P (MAP) Pulse Ox O2 Delivery O2 Flow Rate FiO2 05/24/17 05:58 71 20 119/66 99 Room Air 05/24/17 03:45 36.8 77 20 135/89 98 Room Air Physical Exam GENERAL: alert, well appearing, well nourished, no distress, non-toxic EYE EXAM: normal conjunctiva, PERRL and EOM's grossly intact OROPHARYNX: no exudate, no erythema, lips, buccal mucosa, and tongue normal and mucous membranes are moist NECK: supple, no nuchal rigidity, no adenopathy, non-tender LUNGS: Clear to auscultation. Normal chest wall mechanics HEART: no murmurs, S1 normal and S2 normal ABDOMEN: abdomen soft, non-tender, normo-active bowel sounds, no masses, no rebound or guarding. BACK: Back is symmetrical on inspection and there is no deformity, no midline tenderness, no CVA tenderness. SKIN: no rashes and no bruising UPPER EXTREMITIES: superficial lacerations to the distal left ventral forearm, no bleeding, full ROM LOWER EXTREMITIES: No pitting edema. NEURO EXAM: Normal sensorium, cranial nerves II-XII grossly intact, normal speech, no gross weakness of arms, no gross weakness of legs. Medical Decision & Procedures Laboratory Results 05/24/17 04:24 Red Blood Count 4.78, Mean Corpuscular Volume 90.8, Mean Corpuscular Hemoglobin 31.6, Mean Corpuscular Hemoglobin Concent 34.8, Mean Platelet Volume 10.1, Neutrophils (%) (Auto) 59.3, Lymphocytes (%) (Auto) 31.6, Monocytes (%) (Auto) 7.6, Eosinophils (%) (Auto) 1.0, Basophils (%) (Auto) 0.4, Neutrophils # (Auto) 3.96, Lymphocytes # (Auto) 2.12, Monocytes # (Auto) 0.51, Eosinophils # (Auto) 0.07, Basophils # (Auto) 0.03 05/24/17 04:24 Test 05/24/17 03:55 05/24/17 04:24 Urine Color YELLOW Urine Appearance CLEAR (CLEAR) Urine pH 5.5 (4.5-7.5) Urine Specific [place] 1.004 (1.000-1.030) Urine Protein NEG (NEG) Urine Glucose (UA) NEG (NEG) Urine Ketones NEG (NEG) Urine Occult Blood TRACE (NEG) Urine Nitrite NEG (NEG) Urine Bilirubin NEG (NEG) Urine Urobilinogen NEG (NEG) Urine Leukocyte Esterase NEG (NEG) Urine WBC (Auto) /hpf (0-5) Urine RBC (Auto) /hpf (0-4) Urine Hyaline Casts (Auto) /lpf (0-5) Urine Epithelial Cells (Auto) /lpf (0-5) Urine Bacteria (Auto) (NEG) Urine RBC 0-4 /hpf (0-4) Urine WBC 1-5 /hpf (0-5) Urine Epithelial Cells 0-5 /lpf (0-5) Urine Bacteria NEG (NEG) Urine Opiates Screen NEG (NEG) Urine Methadone, Qualitative NEG (NEG) Urine Barbiturates NEG (NEG) Urine Phencyclidine (PCP) Level NEG (NEG) Ur Amphetamine/Methamphetamine NEG (NEG) MDMA (Ecstasy) Screen NEG (NEG) Urine Benzodiazepines Screen NEG (NEG) Urine Cocaine Metabolite NEG (NEG) Urine Marijuana (THC) NEG (NEG) White Blood Count 6.70 K/uL (4.8-10.8) Red Blood Count 4.78 M/uL (4.7-6.1) Hemoglobin 15.1 g/dL (14.0-18.0) Hematocrit 43.4 % (42-52) Mean Corpuscular Volume 90.8 fL (80-100) Mean Corpuscular Hemoglobin 31.6 pg (25-34) Mean Corpuscular Hemoglobin Concent 34.8 g/dl (32-36) Platelet Count 252 K/uL (130-400) Mean Platelet Volume 10.1 fL (7.4-10.4) Neutrophils (%) (Auto) 59.3 % Lymphocytes (%) (Auto) 31.6 % Monocytes (%) (Auto) 7.6 % Eosinophils (%) (Auto) 1.0 % Basophils (%) (Auto) 0.4 % Neutrophils # (Auto) 3.96 K/uL (1.4-6.5) Lymphocytes # (Auto) 2.12 K/uL (1.2-3.4) Monocytes # (Auto) 0.51 K/uL (0.11-0.59) Eosinophils # (Auto) 0.07 K/uL (0-0.5) Basophils # (Auto) 0.03 K/uL (0-0.2) RDW Standard Deviation 41.5 fL (36.4-46.3) RDW Coefficient of Variation 12.5 % (11.5-14.5) Immature Granulocyte % (Auto) 0.1 % Immature Granulocyte # (Auto) 0.01 K/uL (0.00-0.02) Anion Gap 8.0 mmol/L (3-11) Est Creatinine Clear Calc Drug Dose 80.3 ml/min Estimated GFR () 113.6 Estimated GFR (Non- 98.0 BUN/Creatinine Ratio 14.4 (10-20) Calcium Level 9.3 mg/dl (8.5-10.1) Total Bilirubin 0.8 mg/dl (0.2-1) Direct Bilirubin 0.2 mg/dl (0-0.2) Aspartate Amino Transf (AST/SGOT) 62 U/L (15-37) Alanine Aminotransferase (ALT/SGPT) 45 U/L (12-78) Alkaline Phosphatase 48 U/L (45-117) Total Protein 8.0 gm/dl (6.4-8.2) Albumin 4.6 gm/dl (3.4-5.0) Thyroid Stimulating Hormone (TSH) 1.720 uIu/ml (0.300-4.500) Valproic Acid (Depakene) Level 4 mcg/ml (50-100) Ethyl Alcohol mg/dL 138.0 mg/dl (0-3) Laboratory results per my review. ED Course 0344: The patient was evaluated in room A7. A complete history and physical exam was performed. 0545: Patient seen and evaluated by psychiatric case specialist and feels patient requires inpatient treatment. 0827: Patient, cooperative. Voluntary admission form signed. Per psychiatric case specialist patient will most likely be placed in the [facility]. Medical Decision Differential diagnosis: Etiologies such as mood disorder, infection, hypoglycemia, electrolyte abnormalities, cardiac sources, intracerebral event, toxicologic, neurologic, as well as others were entertained. Medication Reconcilliation Current Medication List: was personally reviewed by me Blood Pressure Screening Patient's blood pressure: Normal blood pressure Blood pressure disposition: Did not require urgent referral Impression Primary Impression: Depression Additional Impressions: Suicidal ideation Alcohol intoxication Scribe Attestation The scribe's documentation has been prepared under my direction and personally reviewed by me in its entirety. I confirm that the note above accurately reflects all work, treatment, procedures, and medical decision making performed by me. Departure Information Prescriptions No Active Prescriptions or Reported Meds Referrals No Doctor, Assigned (PCP) Patient Instructions My [facility] Problem Qualifiers Primary Impression: Depression Depression Type: unspecified Qualified Codes: F32.9 - Major depressive disorder, single episode, unspecified Additional Impressions: Alcohol intoxication Complication of substance-induced condition: uncomplicated Qualified Codes: F10.920 - Alcohol use, unspecified with intoxication, uncomplicated
[2017-05-24 04:38] LABS: BASO % 0.4 %; BASO ABS # 0.03 K/uL (0-0.2); EOS ABS # 0.07 K/uL (0-0.5); HEMATOCRIT 43.4 % (42-52); HEMOGLOBIN 15.1 g/dL (14.0-18.0); IG# 0.01 K/uL (0.00-0.02); LYMPH % 31.6 %; LYMPH ABS # 2.12 K/uL (1.2-3.4); MEAN CELL VOLUME 90.8 fL (80-100); MEAN CORPUSCULAR HEMOGLOBIN 31.6 pg (25-34); MEAN CORPUSCULAR HGB CONC 34.8 g/dl (32-36); MEAN PLATELET VOLUME 10.1 fL (7.4-10.4); MONO % 7.6 %; MONO ABS # 0.51 K/uL (0.11-0.59); NEUT % 59.3 %; NEUT ABS # 3.96 K/uL (1.4-6.5); PLATELET COUNT 252 K/uL (130-400); RED CELL DISTRIBUTION WIDTH CV 12.5 % (11.5-14.5); RED CELL DISTRIBUTION WIDTH SD 41.5 fL (36.4-46.3)
[2017-05-24 04:56] LABS: ALBUMIN 4.6 gm/dl (3.4-5.0); CALCIUM 9.3 mg/dl (8.5-10.1); CREATININE 1.07 mg/dl (0.60-1.40); POTASSIUM 3.7 mmol/L (3.5-5.1)
[2017-05-24 10:11] VITALS: BP 121/84; PULSE 73; O2SAT 96
== END 2017-05-24 10:17 ==
LOC: EDBD 03:24 → C.EDA 03:25
DX: F32.9 Major depressive disorder, single episode, unspecified (principal); R45.851 Suicidal ideations; F10.129 Alcohol abuse with intoxication, unspecified; F31.9 Bipolar disorder, unspecified